=== PATIENT | female | born 1985 | race Caucasian/White ===

== ENCOUNTER 2022-09-28 17:20 | Emergency (ER) | payer OTHER, MEDICAID, SELFPAY ==
[2022-09-28 17:32] VITALS: BP 107/56; PULSE 70; RESP 18; TEMP 35.8; O2SAT 98; BMI 24.0
--- NOTE | 2022-09-28 17:57 | DI.RAD.S_ITS ---
PROCEDURE: XR CHEST 1V INDICATIONS: suspected sepsis TECHNIQUE: One view of the chest was acquired. COMPARISON: [facility], CT, CT CERVICAL SPINE WO CON, 09/28/2022, 18:33. FINDINGS: Surgical changes and devices: None. Lungs and pleura: An incomplete inspiratory result is noted, causing a crowded appearance to the lung markings. No focal infiltrates are seen. No pneumothorax or significant pleural effusions are seen. Mediastinum: Mediastinal contours appear normal. Heart size is normal. Bones and chest wall: No suspicious bony lesions. Overlying soft tissues appear unremarkable. IMPRESSION: Low lung volumes, without focal infiltrates. Dictated by: Geovany Cuello M.D. on 09/28/2022 at 18:25 Approved by: Geovany Cuello M.D. on 09/28/2022 at 18:25
[2022-09-28 18:20] LABS: Add Manual Diff / Slide Review NO; Basophils Absolute Auto 100 /uL (0-100); Basophils Percent Auto 0.7 % (0-2); Eosinophils Absolute Auto 100 /uL (0-450); Eosinophils Percent Auto 1.4 % (2-4); Hematocrit 37.6 % (36-46); Hemoglobin 12.5 g/dL (12.0-16.0); Lymphocytes Absolute Auto 2000 /uL (1100-4500); Lymphocytes Percent Auto 21.4 % (25-40); Mean Corpuscular HGB Conc 33.2 % (30-36); Mean Corpuscular Hemoglobin 31.2 PG (26-34); Monocytes Absolute Auto 500 /uL (0-900); Monocytes Percent Auto 5.2 % (3-14); Neutrophils Absolute Auto 6800 /uL (1500-7000); Neutrophils Percent Auto 71.3 % (50-75); Platelet Count 225 X10^3/uL (150-400); Red Blood Cell Count 4.01 X10^6/uL (4.0-5.2); Red Cell Distribution Width 14.6 % (11.6-14.8); White Blood Cell Count 9.5 X10^3/uL (4.5-11.0)
[2022-09-28 18:27] LABS: Prothrombin Time 11.7 SECONDS (10.1-12.7)
[2022-09-28 18:29] LABS: PTT Partial Thromboplastin Tim 41 SECONDS (26-36)
--- NOTE | 2022-09-28 18:32 | ED.GENADULT ---
HPI - General Adult General Chief complaint: Extremity Injury, Upper Stated complaint: NECK PAIN/INFECTED RT. HAND Time Seen by Provider: 09/28/22 17:57 Source: patient and family Mode of arrival: Ambulatory Limitations: no limitations History of Present Illness HPI narrative: Patient is a 37-year-old female who is here for evaluation of multiple issues. She has a history of IV drug use. Also has a history of methamphetamine use. She states she is not using those now but does admit to be using narcotics. She is here because she is having neck pain. This is stemming from an injury that she sustained in April of last year where she stated that she fell. Since that time she has had continued neck discomfort which she states is causing her to continue to use the street narcotics. She is also here because she states she is an infection in her fingers. She also is concerned about infections and other areas of her arms where she used to inject herself. She also has wounds on her lower extremities and very dry skin. All these symptoms have been going on some time. She has been in contact with an individual with [facility]. She states that she is very interested in getting off of all of the opioids and is here seeking for help this. Related Data Home Medications Medication Instructions Recorded Confirmed Aripiprazole (Abilify) ##0 07/30/07 LORAZEPAM (Ativan) 1 mg PO ##0 07/30/07 Oxycodone/Acetaminophen (Percocet 2 tab PO ##0 07/30/07 5-325 MG Tablet) Previous Rx's Medication Instructions Recorded cyclobenzaprine 10 mg tablet 10 mg PO TID PRN muscle spasm #21 09/28/22 tabs Allergies Allergy/AdvReac Type Severity Reaction Status Date / Time risperidone [From Risperdal] Allergy Verified 09/28/22 17:29 tramadol Allergy Verified 09/28/22 17:29 Review of Systems Constitutional Constitutional: Reports fatigue Cardiovascular Cardiovascular: Reports system reviewed and no additional complaints, except as documented Respiratory Respiratory: Reports system reviewed and no additional complaints, except as documented Musculoskeletal Musculoskeletal: Reports system reviewed and no additional complaints, except as documented Integumentary/Breasts Skin/Breast: Reports system reviewed and no additional complaints, except as documented Neurologic Neurologic: Reports system reviewed and no additional complaints, except as documented Psychiatric Psychiatric: Reports system reviewed and no additional complaints, except as documented Endocrine Endocrine: Reports fatigue Patient History Social History Smoking Status: Current every day smoker Smoking Status: Current every day smoker Substance Use Type: former substance user, painkillers and methamphetamine Exam Initial Vital Signs Initial Vital Signs: Vital Signs Temperature 96.4 F L 09/28/22 17:32 Pulse Rate 70 09/28/22 17:32 Respiratory Rate 18 09/28/22 17:32 Blood Pressure 107/56 L 09/28/22 17:32 Pulse Oximetry 98 09/28/22 17:32 Oxygen Delivery Method 09/28/22 17:32 Const General: disheveled HENMT Head: normal to inspection and normocephalic Resp Effort & Inspection: normal respiratory effort Auscultation: clear to auscultation bilaterally Cardio Rate: regular rate Rhythm: regular rhythm Back/Spine/Pelvis Cervical Spine: cervical muscular tenderness Skin Other: Patient does have various wounds throughout her body in various stages of healing. She does have a paronychia to her right thumb. Patient also has scarring to both of her forearms. There is no indication of any infection in these areas. She also has crusting to both her lower extremities and very dry skin. She is correcting around her fingers as well. Neuro General: patient alert, patient awake, patient oriented x3 and moves all extremities Extrem Other: Patient does have swollen hands. Course Orders Ordered: ED Orders 09/28/22 17:40 Consult to COMPUTER ASSISTANT - Duplicator Punch Operator Stat 09/28/22 17:57 XR chest 1V Stat Blood Culture Stat RT Consult Eval and Treat NOW 09/28/22 18:06 Acetaminophen Stat Complete Blood Count AUTO DIFF Stat Comprehensive Metabolic Panel Stat Ethanol (ETOH) Stat Lactate (Lactic Acid) Stat Lipase Stat Partial Thromboplastin Time Stat Procalcitonin Stat Prothrombin Time INR Stat Salicylate Stat 09/28/22 18:31 EKG-12 Lead Stat 09/28/22 18:33 CT cervical spine wo con Stat Discontinued Medications Bacitracin (Bacitracin Oint 0.9 Gm Pckt) 1 applic TOP NOW ONE Stop: 09/28/22 20:00 Last Admin: 09/28/22 20:13 Dose: 1 applic Documented By: AT Sodium Chloride (Normal Saline 0.9%) 1,000 mls @ 1,000 mls/hr IV BOLUS ONE Stop: 09/28/22 18:51 Last Admin: 09/28/22 18:45 Dose: Not Given Documented By: AT Ondansetron HCl (Ondansetron 4 Mg/2 Ml Inj) 4 mg IV NOW PRN PRN Reason: Nausea And Vomiting Ondansetron HCl (Ondansetron 4 Mg Odt) 4 mg SL NOW PRN PRN Reason: Nausea And Vomiting Vital Signs Vital signs: Vital Signs - 8 hr 09/28/22 17:32 09/28/22 18:49 09/28/22 19:00 Temperature 96.4 F L Pulse Rate 70 77 74 Respiratory Rate 18 18 Blood Pressure 107/56 L 113/83 Pulse Oximetry 98 100 100 Oxygen Delivery Method Room Air Room Air 09/28/22 19:01 09/28/22 19:01 09/28/22 19:30 Temperature Pulse Rate 71 70 Respiratory Rate 18 18 18 Blood Pressure 115/57 L Pulse Oximetry 100 100 Oxygen Delivery Method 09/28/22 20:00 Temperature Pulse Rate 74 Respiratory Rate Blood Pressure Pulse Oximetry 100 Oxygen Delivery Method Room Air Medical Decision Making Lab Data Lab results reviewed: Yes I reviewed the patient's lab results. 09/28/22 18:06 09/28/22 18:06 Labs: Lab Results 09/28/22 09/28/22 09/28/22 Range/Units 18:06 18:06 18:06 WBC 9.5 (4.5-11.0) X10^3/uL RBC 4.01 (4.0-5.2) X10^6/uL Hgb 12.5 (12.0-16.0) g/dL Hct 37.6 (36-46) % MCV 94.0 (80-100) fL MCH 31.2 (26-34) PG MCHC 33.2 (30-36) % RDW 14.6 (11.6-14.8) % Plt Count 225 (150-400) X10^3/uL Neut % (Auto) 71.3 (50-75) % Lymph % (Auto) 21.4 L (25-40) % Kingfisher % (Auto) 5.2 (3-14) % Eos % (Auto) 1.4 L (2-4) % Baso % (Auto) 0.7 (0-2) % Neut # (Auto) 6800 (0347-1069) /uL Lymph # (Auto) 2000 (5071-7877) /uL Kingfisher # (Auto) 500 (0-900) /uL Eos # (Auto) 100 (0-450) /uL Baso # (Auto) 100 (0-100) /uL PT 11.7 (10.1-12.7) SECONDS INR 1.0 (0.9-1.3) APTT 41 H (26-36) SECONDS Sodium 137 (137-145) mmol/L Potassium 4.3 (3.4-5.1) mmol/L Chloride 99 (98-107) mmol/L Carbon Dioxide 32 (22-32) mmol/L BUN 23 H (7-17) mg/dL Creatinine 1.12 H (0.52-1.04) mg/dL Estimated GFR > 60 (>60) mL/min BUN/Creatinine Ratio 20.5 (6-22) Glucose 109 H (70-100) mg/dL Lactate (0.7-2.1) mmol/L Calcium 9.5 (8.4-10.2) mg/dL Total Bilirubin 0.3 (0.2-1.3) mg/dL AST 127 H (14-36) IU/L ALT 56 H (<35) IU/L Alkaline Phosphatase 83 (38-126) U/L Total Protein 9.2 H (6.3-8.2) g/dL Albumin 4.8 (3.5-5.0) g/dL Globulin 4.4 H (1.7-4.1) g/dL Albumin/Globulin Ratio 1.1 (1.0-2.8) Lipase 30 (23-300) U/L Procalcitonin 0.04 (<0.5) ng/mL Salicylates (<20) mg/dL Acetaminophen (10-30) ug/mL Ethyl Alcohol ( - 10) mg/dL 09/28/22 09/28/22 Range/Units 18:06 18:06 WBC (4.5-11.0) X10^3/uL RBC (4.0-5.2) X10^6/uL Hgb (12.0-16.0) g/dL Hct (36-46) % MCV (80-100) fL MCH (26-34) PG MCHC (30-36) % RDW (11.6-14.8) % Plt Count (150-400) X10^3/uL Neut % (Auto) (50-75) % Lymph % (Auto) (25-40) % Kingfisher % (Auto) (3-14) % Eos % (Auto) (2-4) % Baso % (Auto) (0-2) % Neut # (Auto) (4648-9311) /uL Lymph # (Auto) (8550-9156) /uL Kingfisher # (Auto) (0-900) /uL Eos # (Auto) (0-450) /uL Baso # (Auto) (0-100) /uL PT (10.1-12.7) SECONDS INR (0.9-1.3) APTT (26-36) SECONDS Sodium (137-145) mmol/L Potassium (3.4-5.1) mmol/L Chloride (98-107) mmol/L Carbon Dioxide (22-32) mmol/L BUN (7-17) mg/dL Creatinine (0.52-1.04) mg/dL Estimated GFR (>60) mL/min BUN/Creatinine Ratio (6-22) Glucose (70-100) mg/dL Lactate 1.4 (0.7-2.1) mmol/L Calcium (8.4-10.2) mg/dL Total Bilirubin (0.2-1.3) mg/dL AST (14-36) IU/L ALT (<35) IU/L Alkaline Phosphatase (38-126) U/L Total Protein (6.3-8.2) g/dL Albumin (3.5-5.0) g/dL Globulin (1.7-4.1) g/dL Albumin/Globulin Ratio (1.0-2.8) Lipase (23-300) U/L Procalcitonin (<0.5) ng/mL Salicylates < 1.0 (<20) mg/dL Acetaminophen < 10 (10-30) ug/mL Ethyl Alcohol < 10 ( - 10) mg/dL Imaging Data Chest x-ray: Radiologist's Impression: [address] [address] XRay Report Signed Patient: Laura Hunter MR#: [id number] : 1985 Acct:[id number] Age/Sex: 37 / F Date of Service: 09/28/22 Loc: ED Accession Number: [id number] ?? Procedure: XR chest 1V Ordering Provider: Angelo Leong D.O. PROCEDURE:? XR CHEST 1V ? INDICATIONS:? suspected sepsis ? TECHNIQUE:? One view of the chest was acquired.? ? COMPARISON:? [facility], CT, CT CERVICAL SPINE WO CON, 09/28/2022, 18:33. ? FINDINGS:? ? Surgical changes and devices:? None.? ? Lungs and pleura:? An incomplete inspiratory result is noted, causing a crowded appearance to the lung markings.? No focal infiltrates are seen.? No pneumothorax or significant pleural effusions are seen. ? ? Mediastinum:? Mediastinal contours appear normal.? Heart size is normal.? ? Bones and chest wall:? No suspicious bony lesions.? Overlying soft tissues appear unremarkable.? IMPRESSION:? Low lung volumes, without focal infiltrates. ? ? Dictated by: Geovany Cuello M.D. on 09/28/2022 at 18:25 ? ? Approved by: Geovany Cuello M.D. on 09/28/2022 at 18:25? CT - cervical spine: Radiologist's Impression: [place] [address] CT Scan Report Signed Patient: Laura Hunter MR#: [id number] : 1985 Acct:[id number] Age/Sex: 37 / F Date of Service: 09/28/22 Loc: ED Accession Number: [id number] ?? Procedure: CT cervical spine wo con Ordering Provider: Angelo Leong D.O. PROCEDURE:? CT CERVICAL SPINE WO CON ? INDICATIONS:? fall in sept with continued pain ? TECHNIQUE:? Noncontrast 3 mm thick sections acquired from the skull base to the T4 level.? Sagittal and coronal reformats were then constructed.? For radiation dose reduction, the following was used:? automated exposure control, adjustment of mA and/or kV according to patient size.? ? COMPARISON:? [facility], CR, XR CHEST 1V, 09/28/2022, 18:04. ? FINDINGS:? Image quality:? This examination is somewhat limited by quantum mottle artifact.? ? Bones:? No fractures or dislocations.? Visualized superior ribs are intact.? ? There is straightening of the normal cervical lordosis. No focal AP alignment abnormality is seen.? The disc heights are relatively well preserved. ? Soft tissues:? Prevertebral soft tissues are normal in thickness.? No paravertebral hematomas.? No apical pneumothoraces.? ? ? IMPRESSION:? Straightening of the normal cervical lordosis is seen, which is commonly observed in patients with muscular spasm. ? If it would be helpful for clinical management decision making, please consider a dedicated cervical spine MRI for further evaluation (assuming that there is no contraindication).? Dictated by: Geovany Cuello M.D. on 09/28/2022 at 18:15 ? ? Approved by: Geovany Cuello M.D. on 09/28/2022 at 18:17?? ECG Data Attestation: I personally reviewed and interpreted this ECG as follows: Interpretation: Sinus rhythm Ventricular rate of 67 Normal axis Normal QRS Normal QTC Nonspecific ST T wave changes MDM Narrative Medical decision making narrative: Patient is disheveled and does have the appearance of someone who has had chronic drug abuse. She does have a paronychia to her right thumb that was drained here in the emergency department. There is no indication for antibiotics regard to this. She does have dry skin on her hands and her legs and we did discuss topical lotions that she can use. She does have wounds throughout her body in various stages of healing although none of them appeared to have any signs of cellulitis and none have any indication of abscesses. Her labs are unremarkable. She does have paraspinal cervical muscular fullness. The CT scan of her neck shows no signs of acute fractures. She does have CT evidence that could be indicative of muscle spasms. She is here with her sister. Patient states she is very motivated to stop the use of opioids and other illegal drugs however she states whenever she tries she has quite a bit of neck discomfort which causes her to go back to using the pain medication. I will prescribe a muscle relaxer to see if this does not help her symptoms. Patient has been involved with individuals from [facility] in [place]. Patient was seen by social work and apparently she does have Suboxone. We discussed rehab this evening however she would like to go home and contact her contact tomorrow. I tried to have a bare real discussion with her regarding her symptoms. I informed her that there is no easy way through which she is looking at doing. I told her that there is not a ?safer ?opioid and that if she is having addiction problems with opioids that she would need to stop these medications altogether. I also informed her that her skin issues that she is having today will most likely all resolve when she stops using. Will discharge patient home. No indication for oral antibiotics based on her presentation today. She was given return precautions. She expressed understanding and agreement. Discharge Plan Departure Patient Disposition: Home Clinical Impression: Cervical muscle strain, Paronychia Instructions: DI for Paronychia, DI for Cervical Muscle Strain Activity Restrictions/Additional Instructions: I do recommend that you follow-up with [facility] tomorrow to further help with your drug use. Use the lotion on your skin like we discussed. I also recommend that you may contact with the primary doctor to discuss further evaluation of your neck pain has you will most likely require a MRI for further evaluation. Return to the emergency department for new symptoms. Prescriptions: New cyclobenzaprine 10 mg tablet 10 mg PO TID PRN (Reason: muscle spasm) Qty: 21 0RF No Action LORAZEPAM (Ativan) 1 mg PO Qty: 0 Oxycodone/Acetaminophen (Percocet 5-325 MG Tablet) 2 tab PO Qty: 0 Aripiprazole (Abilify) Qty: 0 Stand Alone Forms: Patient Portal/API
--- NOTE | 2022-09-28 18:33 | DI.CT.S_ITS ---
PROCEDURE: CT CERVICAL SPINE WO CON INDICATIONS: fall in sept with continued pain TECHNIQUE: Noncontrast 3 mm thick sections acquired from the skull base to the T4 level. Sagittal and coronal reformats were then constructed. For radiation dose reduction, the following was used: automated exposure control, adjustment of mA and/or kV according to patient size. COMPARISON: [facility], CR, XR CHEST 1V, 09/28/2022, 18:04. FINDINGS: Image quality: This examination is somewhat limited by quantum mottle artifact. Bones: No fractures or dislocations. Visualized superior ribs are intact. There is straightening of the normal cervical lordosis. No focal AP alignment abnormality is seen. The disc heights are relatively well preserved. Soft tissues: Prevertebral soft tissues are normal in thickness. No paravertebral hematomas. No apical pneumothoraces. IMPRESSION: Straightening of the normal cervical lordosis is seen, which is commonly observed in patients with muscular spasm. If it would be helpful for clinical management decision making, please consider a dedicated cervical spine MRI for further evaluation (assuming that there is no contraindication). Dictated by: Geovany Cuello M.D. on 09/28/2022 at 18:15 Approved by: Geovany Cuello M.D. on 09/28/2022 at 18:17
[2022-09-28 18:39] LABS: Lactate (Lactic Acid) 1.4 mmol/L (0.7-2.1)
--- NOTE | 2022-09-28 18:39 | CM.SWNOTE ---
Social Work Note 09/28/22 Pt is a 37yo female who comes to the ED for various medical complaints and endorses using per 30's to manage the pain. SW met with pt at bedside with sister also present, per patients preference. pt confirmed her name and date of . Pt is A&Ox4. Pt details she is dealing with numerous physical pains. she stopped using heroin roughly 14 months ago and replaced it with Fentanyl. She has been on Suboxone in the past. pt identifies that she tries to get off the blues but then my pain rears up so i start taking the blues because of the pain. Pt reports that she has been using up to 10-15 blues a day but in the past few days have been trying to cut back because I'm afraid because people overdose on it. she notes she has been taking 1 every 4-6 hours for a few days and less today. then the pain got bad and that's why i came in here. Pt reports that she is connected with a lady, unknown name, at [facility] for Suboxone management whom she reports she could go see tomorrow. Pt lives with a family member in [place]. she and sister confirm it is a less than ideal living situation in a ard home. sister is very supportive. Discussed disposition options. Pt notes that she is connected with [facility]. Also discussed possibility of detox referral. ultimately pt identifies she does not wish to be referred to detox and would like to discharge home with plan to follow-up with [facility] tomorrow for medication assisted treatment. Plan: Pt will discharge home with plan to follow-up with [facility], whom she reports she is already connected to, as above. Lesa Bradshaw, LACHELLE, SUBSTITUTE NURSE
[2022-09-28 18:40] LABS: Alanine Aminotransferase 56 IU/L (<35); Albumin 4.8 g/dL (3.5-5.0); Albumin Globulin Ratio 1.1 (1.0-2.8); Alkaline Phosphatase 83 U/L (38-126); Aspartate Aminotransferase 127 IU/L (14-36); BUN Creatinine Ratio 20.5 (6-22); Bilirubin Total 0.3 mg/dL (0.2-1.3); Blood Urea Nitrogen 23 mg/dL (7-17); Calcium 9.5 mg/dL (8.4-10.2); Carbon Dioxide 32 mmol/L (22-32); Chloride 99 mmol/L (98-107); Estimated Glomerular Filt Rate > 60 mL/min (>60); Globulin 4.4 g/dL (1.7-4.1); Glucose 109 mg/dL (70-100); HEMOLYSIS 18 (0-50); Lipase 30 U/L (23-300); Potassium 4.3 mmol/L (3.4-5.1); Sodium 137 mmol/L (137-145); Total Protein 9.2 g/dL (6.3-8.2)
--- NOTE | 2022-09-28 18:45 | PC.NURSE ---
Educated pt on ordered Sodium Chloride 0.9% Bolus, pt reports I have excessive fluids in my body and don't want more. Pt sitting upright on stretcher, alert and oriented x3/3, breathing even and unlabored. +2 edema to bilateral hands with various abrasions at different stages of healing, no acute distress noted. LAST REPAIRER at bedside speaking with pt.
[2022-09-28 18:49] VITALS: BP 113/83; PULSE 77; O2SAT 100
[2022-09-28 18:56] LABS: Procalcitonin 0.04 ng/mL (<0.5)
[2022-09-28 19:00] VITALS: PULSE 74; RESP 18; O2SAT 100
[2022-09-28 19:01] VITALS: BP 115/57; PULSE 71; RESP 18; O2SAT 100
--- NOTE | 2022-09-28 19:25 | PC.NURSE ---
Educated pt on orders for urine sample, pt states does not need to void at this time.
[2022-09-28 19:30] VITALS: PULSE 70; RESP 18; O2SAT 100
[2022-09-28 19:38] LABS: Acetaminophen < 10 ug/mL (10-30); Ethanol (ETOH) < 10 mg/dL; Salicylate < 1.0 mg/dL (<20)
[2022-09-28 20:00] VITALS: PULSE 74; O2SAT 100
[2022-09-28] MEDS: BACITRACIN OINT 0.9 GM PCKT 1 APPLIC TOP (20:13)
== END 2022-09-28 20:16 | disposition home or self-care (01) ==
PROVIDERS: Emergency Provider Emergency Medicine
DX: S16.1XXA Strain of muscle, fascia and tendon at neck level, initial encounter (principal); L03.011 Cellulitis of right finger
CPT/HCPCS: 36415; 71045; 72125; 80053; 80320; 80329; 83605; 83690; 84145; 85025; 85610; 85730; 87040; 93005; 93010; 99284; G0480

== ENCOUNTER 2024-04-03 11:45 | Emergency (ER) | payer OTHER, MEDICAID, SELFPAY ==
[2024-04-03 11:51] VITALS: BP 112/83; PULSE 73; RESP 18; TEMP 35.9; O2SAT 99; BMI 29.2
--- NOTE | 2024-04-03 18:32 | ED.EXTPRO ---
HPI - Extremity Problem General Chief complaint: Extremity Problem,Nontraumatic Stated complaint: Swelling both legs with pain Source: patient Mode of arrival: Ambulatory History of Present Illness HPI Narrative: Patient without being seen by provider Related Data Home Medications Medication Instructions Recorded Confirmed Aripiprazole (Abilify) ##0 07/30/07 LORAZEPAM (Ativan) 1 mg PO ##0 07/30/07 Oxycodone/Acetaminophen (Percocet 2 tab PO ##0 07/30/07 5-325 MG Tablet) Previous Rx's Medication Instructions Recorded cyclobenzaprine 10 mg tablet 10 mg PO TID PRN muscle spasm #21 09/28/22 tabs Allergies Allergy/AdvReac Type Severity Reaction Status Date / Time risperidone [From Risperdal] Allergy Verified 09/28/22 17:29 tramadol Allergy Verified 09/28/22 17:29 Patient History Social History Smoking Status: Current every day smoker Smoking Status: Current every day smoker tobacco type: cigarettes Substance Use Type: former substance user, marijuana, painkillers and methamphetamine Exam Initial Vital Signs Initial Vital Signs: Vital Signs Temperature 96.7 F L 04/03/24 11:51 Pulse Rate 73 04/03/24 11:51 Respiratory Rate 18 04/03/24 11:51 Blood Pressure 112/83 04/03/24 11:51 Pulse Oximetry 99 04/03/24 11:51 Oxygen Delivery Method Room Air 04/03/24 11:51 Course Vital Signs Vital signs: Vital Signs - 8 hr 04/03/24 11:51 Temperature 96.7 F L Pulse Rate 73 Respiratory Rate 18 Blood Pressure 112/83 Pulse Oximetry 99 Oxygen Delivery Method Room Air Discharge Plan Departure Patient Disposition: Left Without Being Seen Clinical Impression: Patient left after triage Prescriptions: No Action LORAZEPAM (Ativan) 1 mg PO Qty: 0 Oxycodone/Acetaminophen (Percocet 5-325 MG Tablet) 2 tab PO Qty: 0 Aripiprazole (Abilify) Qty: 0 cyclobenzaprine 10 mg tablet 10 mg PO TID PRN (Reason: muscle spasm) Qty: 21 0RF
== END 2024-04-03 18:21 | disposition left against medical advice (07) ==
PROVIDERS: Emergency Provider Emergency Medicine
CPT/HCPCS: 99281

== ENCOUNTER → 2024-05-02 09:33 | Outpatient (CLI) | payer OTHER, MEDICAID, SELFPAY | PROVIDERS: Referring Provider Student in an Organized Health Care Education/Training Program; Visit Provider Student in an Organized Health Care Education/Training Program | DX: R06.02 Shortness of breath (principal); F17.210 Nicotine dependence, cigarettes, uncomplicated | CPT/HCPCS: 94060; 94726; 94729 ==

== ENCOUNTER → 2024-12-08 13:56 | Outpatient (CLI) | payer OTHER, SELFPAY ==
--- NOTE | 2024-12-08 13:57 | DI.US.S_ITS ---
PROCEDURE: US THYROID INDICATIONS: thyroid nodule TECHNIQUE: Real-time scanning was performed of the thyroid gland, with image documentation. COMPARISON: None. FINDINGS: Thyroid: Right lobe measures 4.1 x 1.2 x 1.3 cm. Left lobe measures 3.2 x 1.2 x 1.0 cm. Isthmus is 0.3 cm thick. Echotexture is heterogeneous. No discrete thyroid nodules visualized. IMPRESSION: Heterogeneous thyroid gland without discrete thyroid nodules visualized. Dictated by: Agus Espinosa M.D. on 12/08/2024 at 23:27 Approved by: Agus Espinosa M.D. on 12/08/2024 at 23:28
== END ==
LOC: US 13:57
PROVIDERS: PCP Family Medicine; Referring Provider Family Medicine; Visit Provider Family Medicine
DX: E04.1 Nontoxic single thyroid nodule (principal)
CPT/HCPCS: 76536